=== PATIENT | male | born 1935 | race Two or more races ===

== ENCOUNTER 2025-02-26 20:31 | Emergency (ER) | payer MEDICARE, OTHER ==
[~2025-02-26] VITALS: Ht 182.9 cm; Wt 81.9 kg
--- NOTE | 2025-02-26 21:11 | ED.PDOC ---
History of Present Illness HPI Comments 89 year old male presents to the ED via EMS with a chief complaint of fall onset yesterday. Per EMS, daughter did a well check on patient today, found patient of floor, RT side. Patient states he was feeling dizzy, fell, landing on RT side, hit hit on bathtub, is currently experiencing RT facial swelling as well as neck pain and LT hip pain. Patient fell since yesterday, was not able to get up. PMHx HTN, HLD. Denies nausea, vomiting, diarrhea, blurry vision, chest pain, shortness of breath. No other symptoms or modifying factors present at this time. Patient's daughter reports patient has only history of hypertension. Takes aspirin at home. No other blood thinner. Chief Complaint: Fall Injury Time Seen by MD: 20:51 Reviewed Notes: Medications, Allergies Allergies: Coded Allergies: NO KNOWN ALLERGIES (Unverified , 02/26/25) Information Source: Patient, Emergency Med Personnel Mode of Arrival: EMS Severity: Moderate Timing: Days Duration: Since onset Prehospital treatment: None Vital Signs Vital Signs Date Time Temp Pulse Resp B/P (MAP) Pulse Ox O2 Delivery O2 Flow Rate FiO2 02/27/25 00:30 98.0 84 17 133/72 (92) 96 98.0 02/26/25 23:20 Room Air* 0 21 21 Physical Exam General: Awake, alert No acute distress. Skin: Old bruises bilateral upper extremities. Rash on bilateral lower extremities. Healing wound center of forehead. No new laceration or abrasion. HEENT: The head is normocephalic and atraumatic. Conjunctivae are clear without exudates or hemorrhage. Sclera is non-icteric. EOM are intact. No signs of nystagmus. 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 Left pupil reactive. Right pupil nonreactive. Eyelids are normal in appearance without swelling or lesions. Extraocular movements intact. Oral mucosa is pink and moist Neck: Positive C-spine tenderness. Cardiac: Heart rate and rhythm are normal. No murmurs, gallops, or rubs are auscultated. Respiratory: No signs of respiratory distress. Lung sounds are clear in all lobes bilaterally without rales, rhonchi, or wheezes. Abdominal: Abdomen is soft, non-tender without distention. Bowel sounds are present and normoactive in all four quadrants. Extremities: Left hip tenderness to palpation. Left foot everted. Neurological: The patient is awake, alert . Patient is following commands. Patient able to move upper and lower extremities without difficulty. 4/5 strength in upper and lower extremities. Speech is clear. No facial asymmetry. Review of Systems: REVIEW OF SYSTEMS: No fever, no chills, or fatigue HEENT: No sore throat, no earache, no congestion, no neck pain. Cardiac: No chest pain. No palpitations. Lungs: No shortness of breath, no cough. GI: No nausea, no vomiting, no diarrhea, no constipation, no abdominal pain : No dysuria, frequency, or urgency. No hematuria. Musculoskeletal: Positive neck pain. Chronic joint pains. Skin: No rash, no itching. Neuro: No headache, positive dizziness dizziness, no weakness Was a procedure done? Was a procedure done?: No EKG EKG : Pulse Rate (adult): 81 Cardiac Rhythm: Afib Block: LBBB Differential Dx Considerations may include: Differential diagnosis considered includes but not limited to intracranial hemorrhage, stroke, head injury, seizure, metabolic disturbance, electrolyte imbalance, infection, substance intoxication, psychiatric cause, other systemic illness, other X-Ray, Labs, Meds, VS Vital Signs Date Time Temp Pulse Resp B/P (MAP) Pulse Ox O2 Delivery O2 Flow Rate FiO2 02/27/25 00:30 98.0 84 17 133/72 (92) 96 98.0 02/26/25 23:20 96 18 96 Room Air* 0 21 21 02/26/25 22:00 98.5 86 20 128/67 (87) 96 98.5 02/26/25 21:11 81 02/26/25 20:46 81 02/26/25 20:40 97.6 81 16 123/72 (89) 97 97.6 Lab Test 02/26/25 22:54 02/26/25 21:46 02/26/25 21:30 Range/Units Troponin I High Sensitivity 71 *H 70 *H </=54 ng/L Levetiracetam Level Pending Influenza Type A Antigen Negative Negative Influenza Type B Antigen Negative Negative SARS-CoV-2 Antigen (Rapid) Negative NEGATIVE White Blood Count 15.6 H 4.4-10.8 10^3/uL Red Blood Count 4.67 4.5-5.90 10^6/uL Hemoglobin 14.6 13.5-17.5 g/dL Hematocrit 44.2 41.0-53.0 % Mean Corpuscular Volume 94.7 80.0-100.0 fL Mean Corpuscular Hemoglobin 31.3 28.0-32.0 pg Mean Corpuscular Hemoglobin Concent 33.0 32.0-36.0 g/dL Red Cell Distribution Width 15.2 H 11.8-14.3 % Platelet Count 252 140-450 10^3/uL Mean Platelet Volume 7.1 6.9-10.8 fL Neutrophils (%) (Auto) 82.5 H 37.0-80.0 % Lymphocytes (%) (Auto) 9.5 L 10.0-50.0 % Monocytes (%) (Auto) 7.8 0.0-12.0 % Eosinophils (%) (Auto) 0.1 0.0-7.0 % Basophils (%) (Auto) 0.1 0.0-2.0 % Neutrophils # (Auto) 12.9 H 1.6-8.6 10 ^3/uL Lymphocytes # (Auto) 1.5 0.4-5.4 10 ^3/uL Monocytes # (Auto) 1.2 0-1.3 10 ^3/uL Eosinophils # (Auto) 0 0-0.8 10 ^3/uL Basophils # (Auto) 0 0-0.2 10 ^3/uL Nucleated Red Blood Cells 0.1 % Prothrombin Time 11.7 9.3-11.8 sec Prothrombin Time INR 1.12 0.9-1.15 Sodium Level 141 136-145 mmol/L Potassium Level 3.8 3.5-5.1 mmol/L Chloride Level 105 98-107 mmol/L Carbon Dioxide Level 21 20-31 mmol/L Anion Gap 15 5-15 Blood Urea Nitrogen 15 9-23 mg/dL Creatinine 0.69 L 0.700-1.30 mg/dL Glomerular Filtration Rate Calc 89 >90 mL/min BUN/Creatinine Ratio 21.7 H 10.0-20.0 Serum Glucose 99 74-106 mg/dL Lactic Acid Level 1.9 0.4-2.0 mmol/L Calcium Level 9.9 8.7-10.4 mg/dL Magnesium Level 2.3 1.6-2.6 mg/dL Total Bilirubin 2.2 H 0.2-1.0 mg/dL Aspartate Amino Transferase (AST) 115 H 13-40 U/L Alanine Aminotransferase (ALT) 41 H 7-40 U/L Alkaline Phosphatase 123 H 46-116 U/L Creatine Kinase 4110 H 46-171 U/L B-Type Natriuretic Peptide 98.08 0-100 pg/mL Total Protein 7.2 5.7-8.2 g/dL Albumin 4.7 3.2-4.8 g/dL Lipase 30 12-53 U/L Thyroid Stimulating Hormone (TSH) 1.04 0.55-4.78 uIU/mL Plasma/Serum Blood Alcohol < 3.0 <10 mg/dL Current Medications Medications (Trade) Dose Ordered Sig/Marlon Route Start Time Stop Time Status Last Admin Sodium Chloride 1,000 ml @ 1,000 mls/hr Q1H ONCE IV 02/26/25 21:15 02/26/25 22:14 DC 02/26/25 23:00 Levetiracetam 100 ml @ 400 mls/hr ONCE ONCE IV 02/27/25 00:00 02/27/25 00:14 DC 02/27/25 00:10 PATIENT: JAVIER VIVAS FACCT: [id number]: [id number] : 1935 LOC: ER ROOM / BED: / AGE / SEX: 89 / M ADM STATUS: REG ER SERVICE 12 ORDERING PHYSICIAN: ANJALI LUZ MD PROCEDURE(s): ABPL - CT AB PEL WO CON-NO ORAL OR IV REASON: Fall, injury, left hip pain ORDER NUMBER(s): [id number], ACCESSION NUMBER(s): [id number] Exam: CT CT AB PEL WO CON-NO ORAL OR IV History: Fall, injury, left hip pain Comparison Study: None available at time of dictation. TECHNIQUE: Multidetector CT of the abdomen was performed from lung bases to pubic symphysis. Imaging was performed without IV contrast. Axial, coronal and sagittal multiplanar reformats were obtained from the axial data set by the technologist. Radiation Dose Information: CT Dose: CTDI volume is 14.44 mGy. Dose-length product is 862.89 mGy*cm FINDINGS: Evaluation of solid organs is limited due to lack of intravenous contrast use. Findings: Lung Bases: No acute or significant lung base finding. Normal heart size. No pleural or pericardial effusion. Liver: The liver is normal in size. No focal lesions. Gallbladder and Biliary Tree: Cholelithiasis Spleen: Unremarkable Pancreas: The pancreas is grossly normal in appearance. Adrenal Glands: Unremarkable Kidneys: Kidneys are grossly normal without calculi or hydronephrosis. Bladder: Grossly unremarkable for degree of distention. Bowel: The stomach is grossly normal in appearance. Small bowel and colon are normal in caliber and distribution. The appendix is not visualized; however, no secondary findings of acute appendicitis identified. Ascites: Absent Lymphadenopathy: No mesenteric, retroperitoneal or periportal lymphadenopathy. Abdominal Wall and Mesentery: Unremarkable. Vasculature: The visualized abdominal aorta is normal in size and caliber. Evaluation of abdominal and pelvic vessels is limited due to lack of intravenous contrast. Pelvic Organs: Unremarkable Musculoskeletal: No aggressive focal bony lesions, acute fractures or dislocation. Right and left femurs appear intact. Right and left superior and inferior pubic ramus appear intact. Soft tissues: Unremarkable IMPRESSION: 1. No hip fractures. 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 2. No fractures of the superior and inferior pubic ramus 3. 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 4. Cholelithiasis 5. 3 cm fat containing left inguinal hernia Radiation optimization: All CT scans at this facility use at least one of these dose optimization techniques: automated exposure control mA and/or kV adjustment per patient size (includes targeted exams where dose is matched to clinical indication) or iterative reconstruction. ATED BY: ALLAN FELIX Jr., DO DICTATED DATE/TIME: 02/26/252249 SIGNED BY: ALLAN FELIX Jr., SIGNED DATE/TIME: 02/26/252249 CC: PATIENT: JAVIER VIVAS ACCT: [id number] UNIT: [id number] : 1935 LOC: ER ROOM / BED: / AGE / SEX: 89 / M ADM STATUS: REG ER SERVICE 12 ORDERING PHYSICIAN: ANJALI LUZ MD PROCEDURE(s): CS2 - CERVICAL WITHOUT CONTRAST REASON: Fall, neck pain ORDER NUMBER(s): [id number], ACCESSION NUMBER(s): [id number] EXAM: CT CERVICAL WITHOUT CONTRAST HISTORY: Fall, neck pain COMPARISON: None CTDIvol 22 mGy, DLP 596 mGy*cm. TECHNIQUE: Multiple axial CT images of the spine were obtained using bone algorithm. Axial and coronal reformatting was done. Bone and soft tissue windows were reviewed. FINDINGS: No CT evidence of definite acute fracture, spinal dislocation, or significant appearing acute subluxation is seen. The visualized paraspinal soft tissues are grossly unremarkable. Multilevel severe degenerative changes of the spine. Multiple bridging anterior osteophytes are seen IMPRESSION: 1. No definite CT evidence of acute fracture or dislocation of the bony cervical spine. 2. Severe degenerative changes throughout the cervical spine ATED BY: IVETTE GRAVES MD DICTATED DATE/TIME: 02/26/252232 SIGNED BY: IVETTE GRAVES MD SIGNED DATE/TIME: 02/26/252232 CC: PATIENT: JAVIER VIVAS ACCT: [id number] UNIT: [id number] : 1935 LOC: ER ROOM / BED: / AGE / SEX: 89 / M ADM STATUS: REG ER SERVICE 12 ORDERING PHYSICIAN: ANJALI LUZ MD PROCEDURE(s): CXR1 - CHEST XRAY 1 VIEW REASON: AMS ORDER NUMBER(s): [id number], ACCESSION NUMBER(s): [id number] CHEST RADIOGRAPH Indication: AMS Technique: Single frontal view of the chest was obtained Comparison: None FINDINGS: there is elevation of the right hemidiaphragm with volume loss in the right lung base. Heart is enlarged and pulmonary vascular 30 is prominent. There are severe degenerative changes involving the shoulders bilaterally and I suspect underlying bilateral supraspinatus tendon tears. IMPRESSION: 1. Possible mild congestive heart failure pattern ATED BY: CASEY ZHANG MD DICTATED DATE/TIME: 02/26/252230 SIGNED BY: CASEY ZHANG MD SIGNED DATE/TIME: 02/26/252230 CC: ADDENDUM ADDENDUM # 1 EXAM: CT HEAD WITHOUT CONTRAST INDICATION: Fall, head injury TECHNIQUE: CT of the head without intravenous contrast. Radiation Dose : 1. Head: CT Dose: CTDI volume is 68 mGy. Dose-length product is 1331 mGy*cm The dose indicators for CT are the volume Computed Tomography (CT) Dose Index (CTDIvol) and the Dose Length Product (DLP), and are measured in units of mGy and mGy-cm, respectively. These indicators are not patient dose, but values generated from the CT scanner acquisition factors. The report includes radiation exposure data for exposures received during this examination. COMPARISON: None FINDINGS: There is a mixed density right-sided subdural hematoma measuring up to 2.4 cm. There is mass-effect and effacement of the adjacent sulci. No significant midline shift The ventricles, sulci and cisterns are age appropriate. The alcaraz-white differentiation is intact. Patchy periventricular and subcortical white matter hypoattenuation is nonspecific but may be related to small vessel ischemic disease. The visualized paranasal sinuses and mastoid air cells are clear. The surrounding soft tissues and osseous structures are unremarkable. IMPRESSION: 1. Mixed density right-sided subdural hematoma measures up to 2.4 cm with mass-effect on the adjacent sulci. No significant midline shift. 2. Chronic microvascular ischemic changes Critical findings discussed with Dr. Luz by Dr. Graves via phone on 02/26/2025 10:33 PM. Radiation optimization: All CT scans at this facility use at least one of these dose optimization techniques: automated exposure control mA and/or kV adjustment per patient size (includes targeted exams where dose is matched to clinical indication) or iterative reconstruction. ORIGINAL REPORT EXAM: CT HEAD WITHOUT CONTRAST INDICATION: Fall, head injury TECHNIQUE: CT of the head without intravenous contrast. Radiation Dose : 1. Head: CT Dose: CTDI volume is 68 mGy. Dose-length product is 1331 mGy*cm The dose indicators for CT are the volume Computed Tomography (CT) Dose Index ( CTDIvol) and the Dose Length Product (DLP), and are measured in units of mGy and mGy-cm, respectively. These indicators are not patient dose, but values generated from the CT scanner acquisition factors. The report includes radiation exposure data for exposures received during this examination. COMPARISON: None FINDINGS: There is a mixed density right-sided subdural hematoma measuring up to 2.4 cm. There is mass-effect and effacement of the adjacent sulci. No significant midline shift The ventricles, sulci and cisterns are age appropriate. The alcaraz-white differentiation is intact. Patchy periventricular and subcortical white matter hypoattenuation is nonspecific but may be related to small vessel ischemic disease. The visualized paranasal sinuses and mastoid air cells are clear. The surrounding soft tissues and osseous structures are unremarkable. IMPRESSION: 1. Mixed density right-sided subdural hematoma measures up to 2.4 cm with mass- effect on the adjacent sulci. No significant midline shift. 2. Chronic microvascular ischemic changes Radiation optimization: All CT scans at this facility use at least one of these dose optimization techniques: automated exposure control mA and/or kV adjustment per patient size (includes targeted exams where dose is matched to clinical indication) or iterative reconstruction. ATED BY: IVETTE GRAVES MD DICTATED DATE/TIME: 02/26/252234 SIGNED BY: IVETTE GRAVES MD SIGNED DATE/TIME: 02/26/252234 CC: EXAM: CT HEAD WITHOUT CONTRAST INDICATION: Fall, head injury TECHNIQUE: CT of the head without intravenous contrast. Radiation Dose : 1. Head: CT Dose: CTDI volume is 68 mGy. Dose-length product is 1331 mGy*cm The dose indicators for CT are the volume Computed Tomography (CT) Dose Index (CTDIvol) and the Dose Length Product (DLP), and are measured in units of mGy and mGy-cm, respectively. These indicators are not patient dose, but values generated from the CT scanner acquisition factors. The report includes radiation exposure data for exposures received during this examination. COMPARISON: None FINDINGS: There is a mixed density right-sided subdural hematoma measuring up to 2.4 cm. There is mass-effect and effacement of the adjacent sulci. No significant midline shift The ventricles, sulci and cisterns are age appropriate. The alcaraz-white differentiation is intact. Patchy periventricular and subcortical white matter hypoattenuation is nonspecific but may be related to small vessel ischemic disease. The visualized paranasal sinuses and mastoid air cells are clear. The surrounding soft tissues and osseous structures are unremarkable. IMPRESSION: 1. Mixed density right-sided subdural hematoma measures up to 2.4 cm with mass- effect on the adjacent sulci. No significant midline shift. 2. Chronic microvascular ischemic changes Radiation optimization: All CT scans at this facility use at least one of these dose optimization techniques: automated exposure control mA and/or kV adjustment per patient size (includes targeted exams where dose is matched to clinical indication) or iterative reconstruction. ATED BY: IVETTE GRAVES MD DICTATED DATE/TIME: 02/26/252229 SIGNED BY: IVETTE GRAVES MD SIGNED DATE/TIME: 02/26/252229 CC: Time of 1ST Reevaluation: 21:21 Reevaluation 1ST: Unchanged Patient Education/Counseling: Need For Follow Up Family Education/Counseling: No Family Present Departure 1 Departure Time of Disposition: 23:56 Impression: Primary Impression: Subdural hematoma Additional Impressions: Rhabdomyolysis Fall Elevated troponin Elevated LFTs Disposition: 02 SHORT TERM HOSPITAL Condition: Stable Comments 89-year-old male with fall, down on the ground approximately 24 hours. Patient awake, alert with no major neuro deficit or seizure during the ED observation. Patient to be transferred to [facility] for neurosurgery services. Extensive evaluation was performed in attempt to identify or rule out: (See differential diagnosis section) The following tests were ordered, and results were reviewed by me and discussed with patient: (See diagnostic results section) The following test were independently interpreted by me: EKG I reviewed and agreed with the following test results read by other providers: CT head without contrast I reviewed the following notes from the pt's past medical encounters: N/A Additional information was gathered from interviewing the following independent historians: EMS, patient's daughter at bedside Discussion of management or test interpretation with external physician/other qualified health nurse care manager: Dr. Gómez at [facility] who accepts patient for admission. @2342 Addressed an acute or chronic illness that poses a threat to life or bodily function: Subdural hematoma, rhabdomyolysis, elevated troponin Decision regarding hospitalization or escalation of hospital level of care: Risk and benefits of admission for further treatment of patient's condition was considered. Due to patient's current clinical condition, high risk of decline and poor outcome if discharged and need for further inpatient management and monitoring, patient will be admitted to the hospital. Drug therapy requiring intensive monitoring for toxicity: IV Keppra Parenteral controlled substances: N/A Decision regarding elective major surgery with identified patient or procedure risk factors: N/A Decision regarding emergency major surgery: N/A Decision not to resuscitate or to de-escalate care because of poor prognosis: N/A Diagnosis or treatment significantly limited by social determinants of health: N/A Critical Care Note Critical Care Time?: Yes (45 min-critical care time only) Critical care comment: Due to a high probability of clinically significant, life threatening deterioration, the patient required my highest level of preparedness to intervene emergently and I personally spent this critical care time directly and personally managing the patient. This critical care time included obtaining a history; examining the patient; pulse oximetry; ordering and review of studies; arranging urgent treatment with development of a management plan; evaluation of patient's response to treatment; frequent reassessment; and, discussions with other providers. This critical care time was performed to assess and manage the high probability of imminent, life-threatening deterioration that could result in multi-organ failure. It was exclusive of separately billable procedures and treating other patients and teaching time. Please see my other sections and the rest of the note for further information on patient assessment and treatment. Stability Stability form required: No I personally scribed for ANJALI LUZ MD ([email or web address]) on 02/26/25 at 21:11. Electronically submitted by Zoey Teixeira ([email or web address]). ANJALI LUZ MD Feb 26, 2025 21:11
[2025-02-26 21:56] LABS: Basophils # (auto) 0 10 ^3/uL (0-0.2); Basophils % (auto) 0.1 % (0.0-2.0); Eosinophils # (auto) 0 10 ^3/uL (0-0.8); Eosinophils % (auto) 0.1 % (0.0-7.0); Hematocrit 44.2 % (41.0-53.0); Hemoglobin 14.6 g/dL (13.5-17.5); Lymphocytes # (auto) 1.5 10 ^3/uL (0.4-5.4); Lymphocytes % (auto) 9.5 % (10.0-50.0); Mean Corpuscular Hemoglobin 31.3 pg (28.0-32.0); Mean Corpuscular Volume 94.7 fL (80.0-100.0); Monocytes # (auto) 1.2 10 ^3/uL (0-1.3); Monocytes % (auto) 7.8 % (0.0-12.0); Neutrophils # (auto) 12.9 10 ^3/uL (1.6-8.6); Neutrophils % (auto) 82.5 % (37.0-80.0); Nucleated Red Blood Cells % 0.1 %; Platelet Count (auto) 252 10^3/uL (140-450); Red Blood Cells 4.67 10^6/uL (4.5-5.90); Red Cell Distribution Width 15.2 % (11.8-14.3); White Blood Cell 15.6 10^3/uL (4.4-10.8)
--- NOTE | 2025-02-26 22:01 | ECG ---
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
[2025-02-26 22:07] LABS: Albumin 4.7 g/dL (3.2-4.8); Anion Gap 15 (5-15); BUN/Creatinine Ratio 21.7 (10.0-20.0); Blood Urea Nitrogen 15 mg/dL (9-23); Calcium 9.9 mg/dL (8.7-10.4); Carbon Dioxide 21 mmol/L (20-31); Chloride 105 mmol/L (98-107); Glucose 99 mg/dL (74-106); Magnesium 2.3 mg/dL (1.6-2.6); Potassium 3.8 mmol/L (3.5-5.1); Sodium 141 mmol/L (136-145); Total Protein 7.2 g/dL (5.7-8.2)
[2025-02-26 22:14] LABS: COVID19 ANTIGEN SOFIA FIA NEGATIVE (NEGATIVE); Rapid Influenza A Negative (Negative); Rapid Influenza B Negative (Negative)
[2025-02-26 22:21] LABS: Alanine Aminotransferase 41 U/L (7-40); Alkaline Phosphatase 123 U/L (46-116); Aspartate Aminotransferase 115 U/L (13-40); Bilirubin, Total 2.2 mg/dL (0.2-1.0); Blood Alcohol < 3.0 mg/dL (<10); Creatine Kinase IFCC 4110 U/L (46-171)
[2025-02-26 22:32] LABS: Lipase 30 U/L (12-53)
--- NOTE | 2025-02-26 22:33 | DVH ---
EXAM: CT HEAD WITHOUT CONTRAST INDICATION: Fall, head injury TECHNIQUE: CT of the head without intravenous contrast. Radiation Dose : 1. Head: CT Dose: CTDI volume is 68 mGy. Dose-length product is 1331 mGy*cm The dose indicators for CT are the volume Computed Tomography (CT) Dose Index (CTDIvol) and the Dose Length Product (DLP), and are measured in units of mGy and mGy-cm, respectively. These indicators are not patient dose, but values generated from the CT scanner acquisition factors. The report includes radiation exposure data for exposures received during this examination. COMPARISON: None FINDINGS: There is a mixed density right-sided subdural hematoma measuring up to 2.4 cm. There is mass-effect a nd effacement of the adjacent sulci. No significant midline shift The ventricles, sulci and cisterns are age appropriate. The alcaraz-white differentiation is intact. Patchy periventricular and subcortical white matter hypoattenuation is nonspecific but may be related to small vessel ischemic disease. The visualized paranasal sinuses and mastoid air cells are clear. The surrounding soft tissues and osseous structures are unremarkable. IMPRESSION: 1. Mixed density right-sided subdural hematoma measures up to 2.4 cm with mass-effect on the adjacent sulci. No significant midline shift. 2. Chronic microvascular ischemic changes Radiation optimization: All CT scans at this facility use at least one of these dose optimization iman hniques: automated exposure control mA and/or kV adjustment per patient size (includes targeted exam s where dose is matched to clinical indication) or iterative reconstruction.
--- NOTE | 2025-02-26 22:33 | DVH ---
CHEST RADIOGRAPH Indication: AMS Technique: Single frontal view of the chest was obtained Comparison: None FINDINGS: there is elevation of the right hemidiaphragm with volume loss in the right lung base. Heart is enlar ged and pulmonary vascular 30 is prominent. There are severe degenerative changes involving the shoul ders bilaterally and I suspect underlying bilateral supraspinatus tendon tears. IMPRESSION: 1. Possible mild congestive heart failure pattern
--- NOTE | 2025-02-26 22:35 | DVH ---
EXAM: CT CERVICAL WITHOUT CONTRAST HISTORY: Fall, neck pain COMPARISON: None CTDIvol 22 mGy, DLP 596 mGy*cm. TECHNIQUE: Multiple axial CT images of the spine were obtained using bone algorithm. Axial and coron al reformatting was done. Bone and soft tissue windows were reviewed. FINDINGS: No CT evidence of definite acute fracture, spinal dislocation, or significant appearing acute subluxa tion is seen. The visualized paraspinal soft tissues are grossly unremarkable. Multilevel severe degenerative changes of the spine. Multiple bridging anterior osteophytes are seen IMPRESSION: 1. No definite CT evidence of acute fracture or dislocation of the bony cervical spine. 2. Severe degenerative changes throughout the cervical spine
--- NOTE | 2025-02-26 22:53 | DVH ---
Exam: CT CT AB PEL WO CON-NO ORAL OR IV History: Fall, injury, left hip pain Comparison Study: None available at time of dictation. TECHNIQUE: Multidetector CT of the abdomen was performed from lung bases to pubic symphysis. Imaging was performed without IV contrast. Axial, coronal and sagittal multiplanar reformats were obtained fr om the axial data set by the technologist. Radiation Dose Information: CT Dose: CTDI volume is 14.44 mGy. Dose-length product is 862.89 mGy*cm FINDINGS: Evaluation of solid organs is limited due to lack of intravenous contrast use. Findings: Lung Bases: No acute or significant lung base finding. Normal heart size. No pleural or pericardial effusion. Liver: The liver is normal in size. No focal lesions. Gallbladder and Biliary Tree: Cholelithiasis Spleen: Unremarkable Pancreas: The pancreas is grossly normal in appearance. Adrenal Glands: Unremarkable Kidneys: Kidneys are grossly normal without calculi or hydronephrosis. Bladder: Grossly unremarkable for degree of distention. Bowel: The stomach is grossly normal in appearance. Small bowel and colon are normal in caliber and d istribution. The appendix is not visualized; however, no secondary findings of acute appendicitis id entified. Ascites: Absent Lymphadenopathy: No mesenteric, retroperitoneal or periportal lymphadenopathy. Abdominal Wall and Mesentery: Unremarkable. Vasculature: The visualized abdominal aorta is normal in size and caliber. Evaluation of abdominal a nd pelvic vessels is limited due to lack of intravenous contrast. Pelvic Organs: Unremarkable Musculoskeletal: No aggressive focal bony lesions, acute fractures or dislocation. Right and left fe murs appear intact. Right and left superior and inferior pubic ramus appear intact. Soft tissues: Unremarkable IMPRESSION: 1. No hip fractures. 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 2. No fractures of the superior and inferior pubic ramus 3. 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 4. Cholelithiasis 5. 3 cm fat containing left inguinal hernia Radiation optimization: All CT scans at this facility use at least one of these dose optimization te chniques: automated exposure control mA and/or kV adjustment per patient size (includes targeted exa ms where dose is matched to clinical indication) or iterative reconstruction.
[2025-02-26] MEDS: SODIUM CHLORIDE 0.9% 1,000 ML IV ONE (23:00)
[2025-02-26 23:03] LABS: INR 1.12 (0.9-1.15); Prothrombin Time 11.7 sec (9.3-11.8)
[2025-02-26 23:20] VITALS: PULSE 96; RESP 18; O2SAT 96
[2025-02-27] MEDS: levETIRAcetam 500 mg/100ml 100 ML IV ONE (00:10)
[2025-02-27 00:30] VITALS: BP 133/72; PULSE 84; RESP 17; TEMP 98; O2SAT 96
== END 2025-02-26 22:37 | disposition short-term general hospital (02) ==
LOC: ER 20:31 → EDBD 20:31 → ER 22:37
DX: S06.5XAA Traumatic subdural hemorrhage with loss of consciousness status unknown, initial encounter (principal); M62.82 Rhabdomyolysis; R79.89 Other specified abnormal findings of blood chemistry; R74.01 Elevation of levels of liver transaminase levels; I10 Essential (primary) hypertension; E78.5 Hyperlipidemia, unspecified; Z20.822 Contact with and (suspected) exposure to COVID-19; W19.XXXA Unspecified fall, initial encounter; Y93.89 Activity, other specified; Y92.89 Other specified places as the place of occurrence of the external cause; Y99.8 Other external cause status
CPT/HCPCS: 36415; 70450; 71045; 72125; 74176; 80053; 80320; 82542; 82550; 83605; 83690; 83735; 83880; 84443; 84484; 85025; 85610; 87040; 87077; 87186; 87426; 87804; 93005; 96361; 96374; 99285; J7030

== ENCOUNTER 2025-04-15 19:55 | Emergency (ER) | payer MEDICARE ==
[~2025-04-15] VITALS: Ht 172.7 cm; Wt 72.0 kg
[2025-04-15 20:42] VITALS: BP 134/72; PULSE 82; RESP 16; TEMP 98.2; O2SAT 96
[2025-04-15] MEDS ORDERED: ACET500T58 PO (21:21)
[2025-04-15] MEDS ORDERED: BACDST PO (21:21)
--- NOTE | 2025-04-15 21:21 | ED.PDOC ---
HPI Comments 89-year-old male presents to ER with complaints of laceration to left forearm that occurred yesterday afternoon. Patient reports that he sustained a laceration to left forearm yesterday afternoon s/p his left forearm making impact with a sharp piece of metal on his walker. Denies falling. He rates his current pain a 4/10 to left forearm without radiation. Denies use of medications for current symptoms and is unsure when his last tetanus shot was. Denies fever, body aches, chills, skin drainage, numbness/tingling or any further symptoms/complain Chief Complaint: Laceration Time Seen by MD: 20:15 Primary Care Provider: VERONICA Reviewed Notes: Nurses Notes, Medications, Allergies Allergies: Coded Allergies: NO KNOWN ALLERGIES (Unverified , 02/26/25) Home Meds Active Scripts Sulfamethoxazole W/Trimethopri (Bactrim Ds Tablet) 1 Tab Tb, 1 TAB PO BID for 7 Days, #14 TAB 0 Refills Prov:ORQUIDEA GARCIA 04/15/25 Acetaminophen (Acetaminophen) 500 Mg Tab, 500 MG PO Q4HPRN, #30 TAB 0 Refills Prov:ORQUIDEA GARCIA 04/15/25 Information Source: Patient Mode of Arrival: Wheelchair Complexity: Simple Laceration Length (cm): 3 Skin Type: Linear Past Medical History PAST MEDICAL HISTORY: High Lipids, HTN Surgical History (Other): Right knee replacement Family History Family History: Unknown Social History Smoker: Non-Smoker Alcohol: Denies ETOH Use Drugs: Denies Drug Use Lives In: Home Constitutional: denies: chills, diaphoresis, fatigue, fever, malaise, sweats, weakness, others EENTM: denies: blurred vision, double vision, ear bleeding, ear discharge, ear drainage, ear pain, ear ringing, eye pain, eye redness, hearing loss, mouth pain, mouth swelling, nasal discharge, nose bleeding, nose congestion, nose pain, photophobia, tearing, throat pain, throat swelling, voice changes, others Respiratory: denies: cough, hemoptysis, orthopnea, SOB at rest, shortness of breath, SOB with excertion, stridor, wheezing, others Cardiovascular: denies: chest pain, dizzy spells, diaphoresis, Dyspnea on exertion, edema, irregular heart beat, left arm pain, lightheadedness, palpitations, PND, syncope, others Gastrointestinal: denies: abdomen distended, abdominal pain, blood streaked bowels, constipated, diarrhea, dysphagia, difficulty swallowing, hematemesis, melena, nausea, poor appetite, poor fluid intake, rectal bleeding, rectal pain, vomiting, others Genitourinary: denies: burning, dysuria, flank pain, frequency, hematuria, incontinence, penile discharge, penile sore, pain, testicle pain, testicle swelling, urgency, others Neurological: denies: dizziness, fainting, headache, left sided numbness, left sided weakness, numbness, paresthesia, pre-existing deficit, right sided numbness, right sided weakness, seizure, speech problems, tingling, tremors, weakness, others Musculoskeletal: denies: back pain, gout, joint pain, joint swelling, muscle pain, muscle stiffness, neck pain, others Integumetry: reports: others (As stated in HPI) Allergic/Immunocompromised: denies: Difficulty Healing, Frequent Infections, Hives, Itching, others Hematologic/Lymphatic: denies: anemia, blood clots, easy bleeding, easy bruising, swollen glands, others Endocrine: denies: excessive hunger, excessive sweating, excessive thirst, excessive urination, flushing, intolerance to cold, intolerance to heat, unexplained weight gain, unexplained weight loss, others Psychiatric: denies: anxiety, bipolar disorder, depression, hopeless, panic disorder, schizophrenia, sleepless, suicidal, others Physical Exam General Appearance: No Apparent Distress HEENT: PERRL/EOMI Neck: Full Range of Motion, Non-Tender, Normal Respiratory: Chest Non-Tender, Lungs Clear, No Accessory Muscle Use, No Respiratory Distress, Normal Breath Sounds Cardiovascular: No Murmur, No Gallop, Regular Rate/Rhythm Breast Exam: Deferred Gastrointestinal: NOT DONE Genitalia: Deferred Pelvic: Deferred Rectal: Deferred Extremities: Normal capillary refill, Normal range of motion Neurologic: Alert, No Motor Deficits, Normal Affect, Normal Mood, No Sensory Deficits Cerebellar Function: Normal Reflexes: Normal Skin: Dry, Warm, Other (3 cm laceration noted to left mid forearm. Slight TTP/swelling/erythema localized to wound edges. No bony tenderness appreciated. No drainage/red streaking/further skin changes noted. Pulses intact) Peripheral Pulses: 2+ Radial (R), 2+ Radial (L), 2+ Brachial (R), 2+ Brachial (L) Lymphatic: No Adenopathy Was a procedure done? Was a procedure done?: Yes Sedation Sedation?: No Laceration Repair : Location Left forearm Length 3 cm Anesthetic: Lidocaine (1%), Without epi Laceration Repair Prep: Saline, Betadine, by Irrigation (Heavily irrigated w ithout any signs of foreign body) Laceration Repair: Number of sutures (3 placed- patient tolerated well without any complication), Size (3-0), Nylon, Simple, Non-adherent gauze Informed consent obtained: Yes Risks, benefits, and alternati: Yes Differential diagnosis Generic Laceration: Fracture, Retained Foriegn Body, Neurovascular Injury, Tendon Injury, Avulsion X-Ray, Labs, Meds, VS Vital Signs Date Time Temp Pulse Resp B/P (MAP) Pulse Ox O2 Delivery O2 Flow Rate FiO2 04/15/25 20:42 Room Air* 0 21 04/15/25 20:42 98.2 82 16 134/72 (92) 96 98.2 04/15/25 20:05 98.2 82 16 134/72 (92) 96 98.2 Current Medications Medications (Trade) Dose Ordered Sig/Marlon Route Start Time Stop Time Status Last Admin Diphtheria/ Tetanus/Acell Pertussis (Boostrix T-Dap) 0.5 ml ONCE ONCE IM 04/15/25 21:15 04/15/25 21:16 DC 04/15/25 21:23 Ceftriaxone Sodium (Rocephin) 1,000 mg ONCE ONCE IM 04/15/25 21:15 04/15/25 21:16 DC 04/15/25 21:22 Rocephin 1 g IM ordered Tdap 0.5 mL IM ordered Wound cleaning performed at bedside Wound care/cleaning discussed and advised Advised to follow up in two days for wound check Advised to follow up in 10-14 days for removal of sutures Advised to follow up with PCP in 1-2 days 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 and agreeable with current plan of care Advised to return to ER immediately if symptoms worsen Time of 1ST Reevaluation: 20:54 Reevaluation 1ST: N/A Patient Education/Counseling: Diagnosis, Treatment, Prognosis, Need For Follow Up Family Education/Counseling: Diagnosis, Treatment, Prognosis, Need For Follow Up Departure 1 Departure Time of Disposition: 21:12 Impression: Primary Impression: Laceration of forearm, left Qualified Codes: S51.812A - Laceration without foreign body of left forearm, initial encounter Disposition: HOME / SELF CARE / HOMELESS Condition: Stable e-Prescriptions Sulfamethoxazole W/Trimethopri (Bactrim Ds Tablet) 1 Tab Tb 1 TAB PO BID for 7 Days, #14 TAB 0 Refills Prov: ORQUIDEA GARCIA 04/15/25 Acetaminophen (Acetaminophen) 500 Mg Tab 500 MG PO Q4HPRN, #30 TAB 0 Refills Prov: ORQUIDEA GARCIA 04/15/25 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
[2025-04-15] MEDS: cefTRIAXone SOD 1,000 MG VL IM ONE (21:22)
[2025-04-15] MEDS: TETANUS-DIPTH-ACEL PERTUSSIS 0.5ML SYR Tdap IM ONE (21:23)
== END 2025-04-15 21:39 | disposition home or self-care (01) ==
LOC: ER 20:01
DX: S51.812A Laceration without foreign body of left forearm, initial encounter (principal); I10 Essential (primary) hypertension; E78.5 Hyperlipidemia, unspecified; Z96.651 Presence of right artificial knee joint; Z23 Encounter for immunization; Z79.899 Other long term (current) drug therapy; X58.XXXA Exposure to other specified factors, initial encounter; Y93.89 Activity, other specified; Y92.89 Other specified places as the place of occurrence of the external cause; Y99.8 Other external cause status
CPT/HCPCS: 12002; 90471; 90715; 96372; 99284; J0696